=== PATIENT | male | born 1975 | race Two or more races ===

== ENCOUNTER 2017-09-14 12:23 | Inpatient (IN) | payer OTHER ==
[2017-09-14 13:20] VITALS: BMI 23.6
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
[2017-09-14] MEDS ORDERED: NICOTINE POLACRILEX 2 MG GUM BC PRN (16:17)
[2017-09-14] MEDS ORDERED: MENTHOL/PHENOL 1 EACH UD MM PRN (16:17)
[2017-09-14] MEDS ORDERED: LOPERAMIDE HCL 2 MG CAPSULE PO PRN (16:17)
[2017-09-14] MEDS ORDERED: guaiFENesin/D-METHORPHAN HB 10 ML UNIT-DOSE CUPS PO PRN (16:17)
[2017-09-14] MEDS ORDERED: MAGNESIUM HYDROX 2400MG/30ML ORAL SUSPENSION 30 ML CUP PO PRN (16:17)
[2017-09-14] MEDS ORDERED: MAG HYDROX/AL HYDROX/SIMETH 30 ML UNIT-DOSE CUP PO PRN (16:17)
[2017-09-14] MEDS ORDERED: MAGNESIUM CITRATE 300 ML BOTTLE PO PRN (16:17)
[2017-09-14] MEDS ORDERED: IBUPROFEN 400 MG TABLET (FP) PO PRN (16:17)
[2017-09-14] MEDS ORDERED: P-EPHED 60MG/TRIPROLIDI 2.5MG TABLET PO PRN (16:17)
[2017-09-14] MEDS ORDERED: hydrOXYzine PAMOATE 50 MG CAPSULE (FP) PO PRN (16:17)
[2017-09-14] MEDS ORDERED: chlordiazePOXIDE HCL 25 MG CAPSULE PO PRN (18:37)
[2017-09-14] MEDS: NICOTINE 14 MG/24 HOURS TOPICAL PATCH TD SCH (18:58)
[2017-09-14] MEDS ORDERED: chlordiazePOXIDE HCL 25 MG CAPSULE PO ONE (19:15)
[2017-09-14] MEDS: ACETAMINOPHEN 325 MG TABLET (FP) PO PRN (22:24)
[2017-09-14] MEDS: chlordiazePOXIDE HCL 25 MG CAPSULE PO SCH (22:24)
[2017-09-14] MEDS: THIAMINE HCL 100 MG TABLET (FP) PO SCH (22:24)
[2017-09-14 23:11] LABS: URINE APPEARANCE TURBID; URINE BILIRUBIN NEGATIVE (NEGATIVE); URINE BLOOD NEGATIVE (NEGATIVE); URINE COLOR YELLOW; URINE GLUCOSE (UA) NEGATIVE (NEGATIVE); URINE KETONE NEGATIVE (NEGATIVE); URINE LEUK ESTERASE NEGATIVE (NEGATIVE); URINE NITRITE NEGATIVE (NEGATIVE); URINE PROTEIN NEGATIVE (NEGATIVE)
[2017-09-15] MEDS: chlordiazePOXIDE HCL 25 MG CAPSULE PO SCH ×4 (05:10→22:08)
--- NOTE | 2017-09-15 09:25 | PN ---
S CIWA - CIWA Score Nausea/Vomitin Muscle Tremors: 3 Anxiety: 3 Agitation: 3 Paroxysmal Sweats: 1-Minimal Palms Moist Orientation: 0-Oriented Tacttile Disturbances: 1-Very Mild Itch/Numbness Auditory Disturbances: 1-Very Mild Visual Disturbances: 0-None Headache: 2-Mild CIWA-Ar Total Score: 17 BHS Progress Note (SOAP) Subjective: ALERT,IRRITABLE,ANXIOUS,INTERRUPTED SLEEP,TREMOR Objective: 09/15/17 09:23 Vital Signs Temperature 97.5 F L 09/15/17 06:14 Pulse Rate 80 09/15/17 06:14 Respiratory Rate 18 09/15/17 06:14 Blood Pressure 151/93 09/15/17 06:14 O2 Sat by Pulse Oximetry (%) EKG NSR,LVH NO CHEST PAIN,NO SOB,NO DIZZINESS 09/15/17 09:24 Laboratory Last Values Urine Color Yellow 09/14/17 22:50 Urine Appearance Turbid 09/14/17 22:50 Urine pH 5.0 (5.0-8.0) 09/14/17 22:50 Ur Specific [place] 1.026 (1.001-1.035) 09/14/17 22:50 Urine Protein Negative (NEGATIVE) 09/14/17 22:50 Urine Glucose (UA) Negative (NEGATIVE) 09/14/17 22:50 Urine Ketones Negative (NEGATIVE) 09/14/17 22:50 Urine Blood Negative (NEGATIVE) 09/14/17 22:50 Urine Nitrite Negative (NEGATIVE) 09/14/17 22:50 Urine Bilirubin Negative (NEGATIVE) 09/14/17 22:50 Urine Urobilinogen 2.0 mg/dL (0.2-1.0) 09/14/17 22:50 Ur Leukocyte Esterase Negative (NEGATIVE) 09/14/17 22:50 LABS PENDING Assessment: 09/15/17 09:23 WITHDRAWAL SYMPTOM Plan: CONTINUE DETOX
[2017-09-15 10:03] LABS: HEMATOCRIT 40.9 % (35.4-49); HEMOGLOBIN 13.4 GM/dL (11.7-16.9); MCH 30.3 pg (25.7-33.7); MCHC 32.7 g/dl (32.0-35.9); MEAN CELL VOLUME 92.8 fl (80-96); MEAN PLT VOLUME 8.4 fl (7.5-11.1); PLATELET COUNT 185 K/MM3 (134-434); RDW 13.4 % (11.9-15.9); WHITE BLOOD COUNT 5.4 K/mm3 (4.0-10.0)
[2017-09-15] MEDS: PRENATAL VITAMINS W/ FOLIC ACID TABLET (FP) PO SCH (10:18)
[2017-09-15] MEDS: NICOTINE 14 MG/24 HOURS TOPICAL PATCH TD SCH (10:20)
[2017-09-15 10:35] LABS: CHLORIDE 101 mmol/L (98-107); POTASSIUM 3.4 mmol/L (3.5-5.1); SODIUM 139 mmol/L (136-145)
[2017-09-15 10:58] LABS: ALBUMIN 3.5 g/dl (3.4-5.0); ALK PHOS 61 U/L (45-117); ANION GAP 7 (8-16); BILIRUBIN,TOTAL 0.7 mg/dL (0.2-1.0); BLOOD UREA NITROGEN 10 mg/dL (7-18); CALCIUM 9.2 mg/dL (8.5-10.1); CO2 31 mmol/L (21-32); CREATININE 0.6 mg/dL (0.7-1.3); GLUCOSE,RANDOM 85 mg/dL (74-106); SGOT/AST 24 U/L (15-37); SGPT/ALT 29 U/L (12-78); TOT PROT 6.7 g/dl (6.4-8.2)
--- NOTE | 2017-09-15 13:59 | EKG ---
Test Reason : Blood Pressure : / mmHG Vent. Rate : 081 BPM Atrial Rate : 081 BPM P-R Int : 164 ms QRS Dur : 096 ms QT Int : 376 ms P-R-T Axes : 072 040 046 degrees QTc Int : 436 ms NORMAL SINUS RHYTHM MINIMAL VOLTAGE CRITERIA FOR LVH, MAY BE NORMAL VARIANT BORDERLINE ECG NO PREVIOUS ECGS AVAILABLE Confirmed by MD Motley Edward ([id number]) on 09/15/2017 1:59:02 PM Referred By: Confirmed By:Nikita Motley MD
[2017-09-15] MEDS: THIAMINE HCL 100 MG TABLET (FP) PO SCH (22:08)
[2017-09-16] MEDS: chlordiazePOXIDE HCL 25 MG CAPSULE PO SCH ×3 (05:56→17:07)
--- NOTE | 2017-09-16 09:32 | PN ---
S CIWA - CIWA Score Nausea/Vomitin Muscle Tremors: 3 Anxiety: 3 Agitation: 2 Paroxysmal Sweats: 1-Minimal Palms Moist Orientation: 0-Oriented Tacttile Disturbances: 1-Very Mild Itch/Numbness Auditory Disturbances: 1-Very Mild Visual Disturbances: 1-Very Mild Sensitivity Headache: 2-Mild CIWA-Ar Total Score: 17 BHS Progress Note (SOAP) Subjective: ALERT,IRRITABLE,ANXIOUS,INTERRUPTED SLEEP,PAIN IN THE BODY Objective: 09/16/17 09:29 Vital Signs Temperature 97.7 F 09/16/17 06:46 Pulse Rate 79 09/16/17 06:46 Respiratory Rate 18 09/16/17 06:46 Blood Pressure 141/106 09/16/17 06:46 O2 Sat by Pulse Oximetry (%) Laboratory Last Values WBC 5.4 K/mm3 (4.0-10.0) 09/15/17 07:30 RBC 4.40 M/mm3 (4.00-5.60) 09/15/17 07:30 Hgb 13.4 GM/dL (11.7-16.9) 09/15/17 07:30 Hct 40.9 % (35.4-49) 09/15/17 07:30 MCV 92.8 fl (80-96) 09/15/17 07:30 MCH 30.3 pg (25.7-33.7) 09/15/17 07:30 MCHC 32.7 g/dl (32.0-35.9) 09/15/17 07:30 RDW 13.4 % (11.9-15.9) 09/15/17 07:30 Plt Count 185 K/MM3 (134-434) D 09/15/17 07:30 MPV 8.4 fl (7.5-11.1) 09/15/17 07:30 Sodium 139 mmol/L (136-145) 09/15/17 07:30 Potassium 3.4 mmol/L (3.5-5.1) L 09/15/17 07:30 Chloride 101 mmol/L (98-107) 09/15/17 07:30 Carbon Dioxide 31 mmol/L (21-32) 09/15/17 07:30 Anion Gap 7 (8-16) L 09/15/17 07:30 BUN 10 mg/dL (7-18) D 09/15/17 07:30 Creatinine 0.6 mg/dL (0.7-1.3) L 09/15/17 07:30 Creat Clearance w eGFR > 60 (>60) 09/15/17 07:30 Random Glucose 85 mg/dL (74-106) 09/15/17 07:30 Calcium 9.2 mg/dL (8.5-10.1) 09/15/17 07:30 Total Bilirubin 0.7 mg/dL (0.2-1.0) 09/15/17 07:30 AST 24 U/L (15-37) D 09/15/17 07:30 ALT 29 U/L (12-78) D 09/15/17 07:30 Alkaline Phosphatase 61 U/L (45-117) 09/15/17 07:30 Total Protein 6.7 g/dl (6.4-8.2) 09/15/17 07:30 Albumin 3.5 g/dl (3.4-5.0) 09/15/17 07:30 Urine Color Yellow 09/14/17 22:50 Urine Appearance Turbid 09/14/17 22:50 Urine pH 5.0 (5.0-8.0) 09/14/17 22:50 Ur Specific [place] 1.026 (1.001-1.035) 09/14/17 22:50 Urine Protein Negative (NEGATIVE) 09/14/17 22:50 Urine Glucose (UA) Negative (NEGATIVE) 09/14/17 22:50 Urine Ketones Negative (NEGATIVE) 09/14/17 22:50 Urine Blood Negative (NEGATIVE) 09/14/17 22:50 Urine Nitrite Negative (NEGATIVE) 09/14/17 22:50 Urine Bilirubin Negative (NEGATIVE) 09/14/17 22:50 Urine Urobilinogen 2.0 mg/dL (0.2-1.0) 09/14/17 22:50 Ur Leukocyte Esterase Negative (NEGATIVE) 09/14/17 22:50 HIV 1&2 Antibody Screen Negative 09/15/17 07:30 HIV P24 Antigen Negative 09/15/17 07:30 Assessment: 09/16/17 09:30 WITHDRAWAL SYMPTOM Plan: CONTINUE DETOX,K DUR 20 MEQ PO DAILY FOR HYPOKALEMIA K IS 3.4 FOR 3 DAYS
[2017-09-16 09:50] LABS: RPR REACTIVE 1:1 (NONREACTIVE)
[2017-09-16 09:51] LABS: TREPONEMA ANTIBODY PREVIOUSLY REACTIVE (NONREACTIVE)
[2017-09-16] MEDS ORDERED: POTASSIUM CHLORIDE TABS 10 MEQ TABLET.ER (FP) PO SCH (10:00)
[2017-09-16] MEDS: NICOTINE 14 MG/24 HOURS TOPICAL PATCH TD SCH (10:14)
[2017-09-16] MEDS: POTASSIUM CHLORIDE TABS 20 MEQ TABLET.ER (FP) PO SCH (10:14)
[2017-09-16] MEDS: PRENATAL VITAMINS W/ FOLIC ACID TABLET (FP) PO SCH (10:14)
[2017-09-16] MEDS: THIAMINE HCL 100 MG TABLET (FP) PO SCH (22:16)
[2017-09-16] MEDS: chlordiazePOXIDE 5 MG CAPSULE PO SCH (22:16)
[2017-09-17] MEDS: chlordiazePOXIDE 5 MG CAPSULE PO SCH ×3 (05:24→17:44)
--- NOTE | 2017-09-17 09:35 | PN ---
S Progress Note (SOAP) Subjective: ALERT,IRRITABLE,INTERRUPTED SLEEP Objective: 09/17/17 09:34 Vital Signs Temperature 97.2 F L 09/17/17 06:00 Pulse Rate 66 09/17/17 06:00 Respiratory Rate 18 09/17/17 06:00 Blood Pressure 129/96 09/17/17 06:00 O2 Sat by Pulse Oximetry (%) Assessment: 09/17/17 09:35 WITHDRAWAL SYMPTOM Plan: CONTINUE DETOX,DISCHARGE IN AM
[2017-09-17] MEDS: PRENATAL VITAMINS W/ FOLIC ACID TABLET (FP) PO SCH (10:20)
[2017-09-17] MEDS: NICOTINE 14 MG/24 HOURS TOPICAL PATCH TD SCH (10:20)
[2017-09-17] MEDS: POTASSIUM CHLORIDE TABS 20 MEQ TABLET.ER (FP) PO SCH (10:20)
[2017-09-17] MEDS: chlordiazePOXIDE HCL 10 MG CAPSULE PO SCH (22:11)
[2017-09-17] MEDS: THIAMINE HCL 100 MG TABLET (FP) PO SCH (22:11)
[2017-09-17] MEDS: ACETAMINOPHEN 325 MG TABLET (FP) PO PRN (22:13)
[2017-09-18] MEDS: chlordiazePOXIDE HCL 10 MG CAPSULE PO SCH (05:34)
[2017-09-18 06:13] VITALS: TEMP 97.7
--- NOTE | 2017-09-18 08:47 | DS ---
[facility] Detox Discharge Summary Admission Date: 09/14/17 Discharge Date: 09/18/17 - History Present History: Alcohol Dependence, Cannabis Dependence Additional Comments: follow up with after care program as arrangement Pertinent Past History: nicotine dependence - Physical Exam Results Vital Signs: Vital Signs Temperature 97.7 F 09/18/17 06:00 Pulse Rate 72 09/18/17 06:00 Respiratory Rate 18 09/18/17 06:00 Blood Pressure 114/76 09/18/17 06:00 O2 Sat by Pulse Oximetry (%) Pertinent Admission Physical Exam Findings: withdrawal symptom and finding - Treatment Hospital Course: Detox Protocol Followed, Detoxed Safely, Responded well, Discharged Condition Good Patient has Accepted a Rehab Referral to: declined - Medication Discharge Medications: Ambulatory Orders levoFLOXacin [Levaquin -] 500 mg PO DAILY@0600 #7 tablet 02/18/16 - Diagnosis (1) Alcohol dependence with uncomplicated withdrawal Current Visit: Yes Status: Acute (2) Cannabis dependence Current Visit: Yes Status: Acute (3) Nicotine dependence Current Visit: Yes Status: Acute Qualifiers: Nicotine product type: cigarettes Substance use status: in withdrawal Qualified Code(s): F17.213 - Nicotine dependence, cigarettes, with withdrawal (4) Hypokalemia Current Visit: Yes Status: Acute - AMA Did Patient Leave Against Medical Advice: No
[2017-09-18 10:01] VITALS: BP 127/81; PULSE 101
== END 2017-09-18 09:33 | disposition home or self-care (01) | DRG 775 ==
LOC: YASAS 12:23 → Y6N 17:27
PROVIDERS: ADMIT Internal Medicine; ATTEND Internal Medicine
PROC: HZ2ZZZZ Detoxification Services for Substance Abuse Treatment (ICD-10-PCS; principal; 2017-09-14)
DX: F10.230 Alcohol dependence with withdrawal, uncomplicated (principal); F12.20 Cannabis dependence, uncomplicated; F17.213 Nicotine dependence, cigarettes, with withdrawal; E87.6 Hypokalemia; I10 Essential (primary) hypertension; Z91.14 Patient's other noncompliance with medication regimen
CPT/HCPCS: 36415; 80053; 81003; 85027; 86593; 86780; 87389; 93005; 93010

== ENCOUNTER 2020-11-13 13:22 | Inpatient (IN) | payer OTHER ==
[2020-11-13] MEDS ORDERED: MAG HYDROX/AL HYDROX/SIMETH 30 ML UNIT-DOSE CUP PO PRN (18:52)
[2020-11-13] MEDS ORDERED: MAGNESIUM CITRATE 300 ML BOTTLE PO PRN (18:52)
[2020-11-13] MEDS ORDERED: MENTHOL/PHENOL 1 EACH UD MM PRN (18:52)
[2020-11-13] MEDS ORDERED: IBUPROFEN 400 MG TABLET (FP) PO PRN (18:52)
[2020-11-13] MEDS ORDERED: MAGNESIUM HYDROX 2400MG/30ML ORAL SUSPENSION 30 ML CUP PO PRN (18:52)
[2020-11-13] MEDS ORDERED: ONDANSETRON *ODT* 4 MG TABLET SL PRN (18:52)
[2020-11-13] MEDS ORDERED: NICOTINE POLACRILEX 2 MG GUM BUC PRN (18:52)
[2020-11-13] MEDS ORDERED: BISMUTH SUBSALICYLATE 524 MG/30 ML UD PO PRN (18:52)
[2020-11-13] MEDS ORDERED: ACETAMINOPHEN 325 MG TABLET (FP) PO PRN ×2 (18:52)
[2020-11-13] MEDS ORDERED: diazePAM 5 MG TABLET PO PRN (19:00)
[2020-11-13] MEDS: NICOTINE 7 MG/24 HOURS TOPICAL PATCH TD SCH (20:54)
[2020-11-13] MEDS: PRENATAL VITAMINS W/ FOLIC ACID TABLET (FP) PO SCH (20:55)
[2020-11-13] MEDS: METHOCARBAMOL 500 MG TABLET PO PRN (22:19)
[2020-11-13] MEDS: hydrOXYzine PAMOATE 25 MG CAPSULE (FP) PO SCH (22:19)
[2020-11-13] MEDS: MELATONIN 5 MG TABLETS PO SCH (22:19)
[2020-11-13] MEDS: diazePAM 5 MG TABLET PO SCH (22:20)
[2020-11-13] MEDS: THIAMINE HCL 100 MG TABLET (FP) PO SCH (22:21)
[2020-11-14] MEDS: diazePAM 5 MG TABLET PO SCH (05:28)
[2020-11-14] MEDS: hydrOXYzine PAMOATE 25 MG CAPSULE (FP) PO SCH (05:29)
[2020-11-14] MEDS ORDERED: hydrOXYzine PAMOATE 25 MG CAPSULE (FP) PO PRN (09:38)
[2020-11-14] MEDS ORDERED: chlordiazePOXIDE HCL 25 MG CAPSULE PO PRN (09:40)
[2020-11-14] MEDS: chlordiazePOXIDE HCL 25 MG CAPSULE PO SCH ×3 (10:11→22:06)
[2020-11-14] MEDS: PRENATAL VITAMINS W/ FOLIC ACID TABLET (FP) PO SCH (10:11)
[2020-11-14] MEDS: NICOTINE 7 MG/24 HOURS TOPICAL PATCH TD SCH (10:12)
[2020-11-14 10:55] LABS: HEMATOCRIT 40.1 % (35.4-49); HEMOGLOBIN 13.6 GM/dL (11.7-16.9); MCH 30.4 pg (25.7-33.7); MCHC 33.9 g/dl (32.0-35.9); MEAN CELL VOLUME 89.8 fl (80-96); MEAN PLT VOLUME 8.7 fl (7.5-11.1); PLATELET COUNT 156 K/MM3 (134-434); RBC 4.46 M/mm3 (4.00-5.60); RDW 14.7 % (11.9-15.9); WHITE BLOOD COUNT 5.6 K/mm3 (4.0-10.0)
[2020-11-14 11:01] LABS: CHLORIDE 95 mmol/L (98-107); SODIUM 137 mmol/L (136-145)
[2020-11-14 11:05] LABS: ALBUMIN 3.7 g/dl (3.4-5.0); BLOOD UREA NITROGEN 9.9 mg/dL (7-18); CALCIUM 9.6 mg/dL (8.5-10.1); CO2 37 mmol/L (21-32); GLUCOSE,RANDOM 79 mg/dL (74-106)
[2020-11-14 11:08] LABS: CREATININE 0.6 mg/dL (0.55-1.3); SGOT/AST 95 U/L (15-37); SGPT/ALT 107 U/L (13-61)
[2020-11-14 11:10] LABS: TOT PROT 6.8 g/dl (6.4-8.2)
[2020-11-14 11:11] LABS: ALK PHOS 71 U/L (45-117)
[2020-11-14 11:12] LABS: ANION GAP 5 MMOL/L (8-16)
[2020-11-14] MEDS: POTASSIUM CHLORIDE ORAL LIQUID 20 MEQ/15 ML PO SCH ×3 (12:01→20:46)
[2020-11-14] MEDS: METHOCARBAMOL 500 MG TABLET PO PRN (17:44)
[2020-11-14] MEDS: MELATONIN 5 MG TABLETS PO SCH (22:06)
[2020-11-14] MEDS: THIAMINE HCL 100 MG TABLET (FP) PO SCH (22:06)
[2020-11-15] MEDS: chlordiazePOXIDE HCL 25 MG CAPSULE PO SCH ×4 (05:28→22:15)
[2020-11-15] MEDS ORDERED: diazePAM 5 MG TABLET PO SCH (06:00)
[2020-11-15] MEDS: PRENATAL VITAMINS W/ FOLIC ACID TABLET (FP) PO SCH (10:22)
[2020-11-15] MEDS: NICOTINE 7 MG/24 HOURS TOPICAL PATCH TD SCH (10:22)
[2020-11-15] MEDS: THIAMINE HCL 100 MG TABLET (FP) PO SCH (22:14)
[2020-11-15] MEDS: MELATONIN 5 MG TABLETS PO SCH (22:14)
[2020-11-15] MEDS: METHOCARBAMOL 500 MG TABLET PO PRN (22:15)
[2020-11-16] MEDS ORDERED: diazePAM 5 MG TABLET PO SCH (06:00)
[2020-11-16] MEDS: chlordiazePOXIDE HCL 25 MG CAPSULE PO SCH ×4 (06:46→22:29)
[2020-11-16] MEDS: PRENATAL VITAMINS W/ FOLIC ACID TABLET (FP) PO SCH (10:06)
[2020-11-16] MEDS: NICOTINE 7 MG/24 HOURS TOPICAL PATCH TD SCH (10:07)
[2020-11-16] MEDS: MELATONIN 5 MG TABLETS PO SCH (22:29)
[2020-11-16] MEDS: THIAMINE HCL 100 MG TABLET (FP) PO SCH (22:29)
[2020-11-16] MEDS: METHOCARBAMOL 500 MG TABLET PO PRN (22:31)
[2020-11-17] MEDS ORDERED: chlordiazePOXIDE HCL 10 MG CAPSULE PO PRN
[2020-11-17] MEDS ORDERED: chlordiazePOXIDE HCL 10 MG CAPSULE PO SCH (05:00)
[2020-11-17] MEDS ORDERED: diazePAM 5 MG TABLET PO ONE (06:00)
[2020-11-17 06:49] VITALS: BP 123/87; PULSE 76; TEMP 97.3
[2020-11-17] MEDS: PRENATAL VITAMINS W/ FOLIC ACID TABLET (FP) PO SCH (10:02)
[2020-11-17] MEDS: NICOTINE 7 MG/24 HOURS TOPICAL PATCH TD SCH (10:03)
[2020-11-17 14:07] LABS: SARS-CoV-2 NAA Not Detected (Not Detected)
[2020-11-18] MEDS ORDERED: chlordiazePOXIDE HCL 10 MG CAPSULE PO SCH (05:00)
[2020-11-19] MEDS ORDERED: chlordiazePOXIDE HCL 10 MG CAPSULE PO ONE (05:00)
== END 2020-11-17 11:52 | disposition home or self-care (01) | DRG 775 ==
LOC: YASAS 13:22 → Y3N 19:32
PROVIDERS: ADMIT Allergy & Immunology; ATTEND Allergy & Immunology
PROC: HZ2ZZZZ Detoxification Services for Substance Abuse Treatment (ICD-10-PCS; principal; 2020-11-13)
DX: F10.230 Alcohol dependence with withdrawal, uncomplicated (principal); F12.20 Cannabis dependence, uncomplicated; F17.213 Nicotine dependence, cigarettes, with withdrawal; I10 Essential (primary) hypertension
CPT/HCPCS: 36415; 80053; 84132; 85027; 86593; 86780; C9803; U0003; U0005

== ENCOUNTER 2024-01-12 14:05 | Inpatient (IN) | payer OTHER ==
[2024-01-12 15:16] VITALS: BMI 23.2
[2024-01-12] MEDS ORDERED: BENZOCAINE/MENTHOL (CHLORASEPTIC ) LOZENGE MM PRN (16:30)
[2024-01-12] MEDS ORDERED: guaiFENesin 600 MG TABLET.ER (FP) PO PRN (16:30)
[2024-01-12] MEDS ORDERED: ONDANSETRON *ODT* 4 MG TABLET SL PRN (16:30)
[2024-01-12] MEDS ORDERED: BISMUTH SUBSALICYLATE 524 MG/30 ML PO PRN (16:30)
[2024-01-12] MEDS ORDERED: BENZONATATE 200 MG CAPSULE PO PRN (16:30)
[2024-01-12] MEDS ORDERED: P-EPHED 60MG/TRIPROLIDI 2.5MG TABLET PO PRN (16:30)
[2024-01-12] MEDS ORDERED: POLYETHYLENE GLYCOL (HEALTHYLAX) 3350 17 GM PACKET PO PRN (16:30)
[2024-01-12] MEDS ORDERED: ACETAMINOPHEN 325 MG TABLET (FP) PO PRN (16:30)
[2024-01-12] MEDS ORDERED: DICYCLOMINE HCL 10 MG CAPSULE PO PRN (16:30)
[2024-01-12] MEDS ORDERED: LOPERAMIDE HCL 2 MG CAPSULE PO PRN (16:30)
[2024-01-12] MEDS ORDERED: MAG HYDROX/AL HYDROX/SIMETH 30 ML UNIT-DOSE CUP PO PRN (16:30)
[2024-01-12] MEDS ORDERED: IBUPROFEN 600 MG TABLET (FP) PO PRN (16:30)
[2024-01-12] MEDS ORDERED: MAGNESIUM HYDROX 2400MG/30ML ORAL SUSPENSION 30 ML CUP PO PRN (16:30)
[2024-01-12] MEDS ORDERED: IBUPROFEN 400 MG TABLET (FP) PO PRN (16:30)
[2024-01-12] MEDS: THIAMINE 100 MG TABLET PO SCH (22:18)
[2024-01-12] MEDS: MELATONIN 5 MG TABLETS PO SCH (22:18)
[2024-01-13] MEDS: hydrOXYzine PAMOATE 25 MG CAPSULE (FP) PO PRN (05:28)
[2024-01-13] MEDS ORDERED: chlordiazePOXIDE HCL 25 MG CAPSULE PO PRN (08:32)
[2024-01-13] MEDS: chlordiazePOXIDE HCL 25 MG CAPSULE PO ONE (08:35)
[2024-01-13] MEDS: PRENATAL VITAMINS W/ FOLIC ACID TABLET (FP) PO SCH (10:11)
[2024-01-13] MEDS: chlordiazePOXIDE HCL 25 MG CAPSULE PO SCH (10:13)
[2024-01-13 11:42] LABS: HEMATOCRIT 40.1 % (35.4-49); HEMOGLOBIN 13.5 GM/dL (11.7-16.9); MCHC 33.6 g/dl (32.0-35.9); MEAN CELL VOLUME 92.2 fl (80-96); MEAN PLT VOLUME 8.7 fl (7.5-11.1); PLATELET COUNT 170 10^3/uL (134-434); RBC 4.35 M/mm3 (4.00-5.60); RDW 13.6 % (11.9-15.9); WHITE BLOOD COUNT 5.6 K/mm3 (4.0-10.0)
[2024-01-13 11:50] LABS: POTASSIUM 3.8 mmol/L (3.5-5.1)
[2024-01-13 12:07] LABS: BLOOD UREA NITROGEN 8.8 mg/dL (7-18); CALCIUM 9.5 mg/dL (8.5-10.1)
[2024-01-13 12:08] LABS: ALBUMIN 3.8 g/dl (3.4-5.0)
[2024-01-13 12:10] LABS: BILIRUBIN,TOTAL 0.6 mg/dL (0.2-1); CREATININE 0.6 mg/dL (0.55-1.3)
[2024-01-14] MEDS ORDERED: cloNIDine HCL 0.1 MG TABLET PO PRN (13:19)
[2024-01-14] MEDS: amLODIPine BESYLATE 5 MG TABLET (FP) PO SCH (14:08)
[2024-01-14] MEDS: LORazepam 2 MG TABLET PO SCH (17:13)
[2024-01-15] MEDS ORDERED: chlordiazePOXIDE HCL 25 MG CAPSULE PO SCH (05:00)
[2024-01-16] MEDS ORDERED: chlordiazePOXIDE HCL 10 MG CAPSULE PO PRN
[2024-01-16] MEDS ORDERED: chlordiazePOXIDE HCL 10 MG CAPSULE PO SCH (05:00)
[2024-01-16] MEDS: LORazepam 1 MG TABLET PO SCH (05:30)
[2024-01-16] MEDS: METHOCARBAMOL 500 MG TABLET PO PRN (22:58)
[2024-01-16] MEDS: LORazepam 1 MG TABLET PO PRN (23:00)
[2024-01-17] MEDS ORDERED: LORazepam 0.5 MG TABLET PO PRN
[2024-01-17] MEDS ORDERED: chlordiazePOXIDE HCL 10 MG CAPSULE PO SCH (05:00)
[2024-01-17] MEDS ORDERED: LORazepam 0.5 MG TABLET PO SCH (05:00)
[2024-01-17] MEDS: LORazepam 0.5 MG TABLET PO ONE (05:32)
[2024-01-17 06:02] VITALS: RESP 16
[2024-01-17 09:12] VITALS: BP 116/86; PULSE 87; TEMP 98
[2024-01-18] MEDS ORDERED: LORazepam 0.5 MG TABLET PO ONE (05:00)
[2024-01-18] MEDS ORDERED: chlordiazePOXIDE HCL 10 MG CAPSULE PO ONE (05:00)
== END 2024-01-17 09:43 | disposition home or self-care (01) | DRG 775 ==
LOC: YASAS 14:05 → Y6N 17:44 → UNDOADMIN 17:44 → Y6N 01-13 09:24
PROVIDERS: ADMIT Allergy & Immunology; ATTEND Surgery
PROC: HZ2ZZZZ Detoxification Services for Substance Abuse Treatment (ICD-10-PCS; principal; 2024-01-13)
DX: F10.230 Alcohol dependence with withdrawal, uncomplicated (principal); F12.10 Cannabis abuse, uncomplicated; I10 Essential (primary) hypertension; R74.01 Elevation of levels of liver transaminase levels; Z86.19 Personal history of other infectious and parasitic diseases
CPT/HCPCS: 36415; 80053; 80305; 80307; 84450; 85027; 86593; 86780; 86803

== ENCOUNTER 2024-08-13 12:19 | Inpatient (IN) | payer OTHER ==
[2024-08-13 12:56] VITALS: BMI 22.5
[2024-08-13] MEDS ORDERED: POLYETHYLENE GLYCOL (HEALTHYLAX) 3350 17 GM PACKET PO PRN (13:12)
[2024-08-13] MEDS ORDERED: BISMUTH SUBSALICYLATE 524 MG/30 ML PO PRN (13:12)
[2024-08-13] MEDS ORDERED: MAGNESIUM HYDROX 2400MG/30ML ORAL SUSPENSION 30 ML CUP PO PRN (13:12)
[2024-08-13] MEDS ORDERED: ONDANSETRON *ODT* 4 MG TABLET SL PRN (13:12)
[2024-08-13] MEDS ORDERED: BENZONATATE 200 MG CAPSULE PO PRN (13:12)
[2024-08-13] MEDS ORDERED: LOPERAMIDE HCL 2 MG CAPSULE PO PRN (13:12)
[2024-08-13] MEDS ORDERED: DICYCLOMINE HCL 10 MG CAPSULE PO PRN (13:12)
[2024-08-13] MEDS ORDERED: NICOTINE POLACRILEX 2 MG GUM BUC PRN (13:12)
[2024-08-13] MEDS ORDERED: BENZOCAINE/MENTHOL (CHLORASEPTIC ) LOZENGE MM PRN (13:12)
[2024-08-13] MEDS ORDERED: guaiFENesin 600 MG TABLET.ER (FP) PO PRN (13:12)
[2024-08-13] MEDS ORDERED: MAG HYDROX/AL HYDROX/SIMETH 30 ML UNIT-DOSE CUP PO PRN (13:12)
[2024-08-13] MEDS ORDERED: chlordiazePOXIDE HCL 25 MG CAPSULE PO PRN (13:28)
[2024-08-13] MEDS ORDERED: chlordiazePOXIDE HCL 25 MG CAPSULE ONE (13:36)
[2024-08-13] MEDS: chlordiazePOXIDE HCL 25 MG CAPSULE PO ONE (13:37)
[2024-08-13] MEDS: chlordiazePOXIDE HCL 25 MG CAPSULE PO SCH (17:29)
[2024-08-13] MEDS: THIAMINE 100 MG TABLET PO SCH (22:06)
[2024-08-13] MEDS: MELATONIN 5 MG TABLETS PO SCH (22:06)
[2024-08-13] MEDS: METHOCARBAMOL 500 MG TABLET PO PRN (22:07)
[2024-08-13] MEDS: hydrOXYzine PAMOATE 25 MG CAPSULE (FP) PO PRN (22:07)
[2024-08-14 08:35] LABS: CHLORIDE 85 mmol/L (98-107); SODIUM 129 mmol/L (136-145)
[2024-08-14 08:37] LABS: HEMATOCRIT 43.5 % (35.4-49); MCH 30.5 pg (25.7-33.7); MCHC 34.6 g/dl (32.0-35.9); MEAN CELL VOLUME 88.3 fl (80-96); MEAN PLT VOLUME 8.8 fl (7.5-11.1); PLATELET COUNT 148 10^3/uL (134-434); RBC 4.92 M/mm3 (4.00-5.60); RDW 13.6 % (11.9-15.9); WHITE BLOOD COUNT 5.4 K/mm3 (4.0-10.0)
[2024-08-14 08:52] LABS: ALBUMIN 4.3 g/dl (3.4-5.0); BLOOD UREA NITROGEN 12.6 mg/dL (7-18); CALCIUM 10.3 mg/dL (8.5-10.1); CO2 30 mmol/L (21-32); GLUCOSE,RANDOM 201 mg/dL (74-106)
[2024-08-14 08:55] LABS: BILIRUBIN,TOTAL 3.1 mg/dL (0.2-1); SGOT/AST 360 U/L (15-37); SGPT/ALT 326 U/L (13-61); TOT PROT 7.7 g/dl (6.4-8.2)
[2024-08-14 08:57] LABS: ALK PHOS 74 U/L (45-117)
[2024-08-14 09:11] LABS: ANION GAP 14 mmol/L (4-13); POTASSIUM 2.4 mmol/L (3.5-5.1)
[2024-08-14] MEDS: PRENATAL VITAMINS W/ FOLIC ACID TABLET (FP) PO SCH (09:40)
[2024-08-14] MEDS: POTASSIUM CHLORIDE ORAL LIQUID 20 MEQ/15 ML PO ONE ×2 (09:40→10:41)
[2024-08-15] MEDS: chlordiazePOXIDE HCL 25 MG CAPSULE PO SCH (05:45)
[2024-08-15 11:41] LABS: CHLORIDE 91 mmol/L (98-107); SODIUM 135 mmol/L (136-145)
[2024-08-15 11:42] LABS: CALCIUM 10.3 mg/dL (8.5-10.1)
[2024-08-15 11:43] LABS: ANION GAP 9 mmol/L (4-13); BLOOD UREA NITROGEN 18.7 mg/dL (7-18); CO2 34 mmol/L (21-32); GLUCOSE,RANDOM 127 mg/dL (74-106); MAGNESIUM 1.6 mg/dL (1.8-2.4); POTASSIUM 2.9 mmol/L (3.5-5.1)
[2024-08-15 11:47] LABS: CREATININE 0.8 mg/dL (0.55-1.3)
[2024-08-15] MEDS: POTASSIUM CHLORIDE ORAL LIQUID 20 MEQ/15 ML PO ONE ×2 (12:09→17:09)
[2024-08-16] MEDS ORDERED: chlordiazePOXIDE HCL 10 MG CAPSULE PO PRN
[2024-08-16] MEDS: chlordiazePOXIDE HCL 10 MG CAPSULE PO SCH (05:50)
[2024-08-16 11:12] LABS: POTASSIUM 3.7 mmol/L (3.5-5.1)
[2024-08-16 11:15] LABS: ALBUMIN 3.8 g/dl (3.4-5.0); BLOOD UREA NITROGEN 18.3 mg/dL (7-18); CALCIUM 9.7 mg/dL (8.5-10.1)
[2024-08-16 11:21] LABS: CREATININE 0.7 mg/dL (0.55-1.3)
[2024-08-16 11:22] LABS: TOT PROT 6.6 g/dl (6.4-8.2)
[2024-08-16 11:24] LABS: BILIRUBIN,TOTAL 0.5 mg/dL (0.2-1)
[2024-08-17] MEDS: chlordiazePOXIDE HCL 10 MG CAPSULE PO SCH (05:58)
[2024-08-18] MEDS: chlordiazePOXIDE HCL 10 MG CAPSULE PO ONE (05:44)
[2024-08-18 06:30] VITALS: BP 104/71; PULSE 89; RESP 17; TEMP 98
[2024-08-18] MEDS: NALOXONE (NYS OPIOID OVERDOSE PROGRAM) 4 MG/0.1 ML SPRAY NS SCH (08:55)
[2024-08-18] MEDS: amLODIPine BESYLATE 5 MG TABLET (FP) PO SCH (09:12)
== END 2024-08-18 09:22 | disposition home or self-care (01) | DRG 775 ==
LOC: YASAS 12:19 → Y3N 13:20
PROVIDERS: ADMIT Allergy & Immunology; ATTEND Allergy & Immunology
PROC: HZ2ZZZZ Detoxification Services for Substance Abuse Treatment (ICD-10-PCS; principal; 2024-08-13)
DX: F10.230 Alcohol dependence with withdrawal, uncomplicated (principal); F12.20 Cannabis dependence, uncomplicated; F17.210 Nicotine dependence, cigarettes, uncomplicated; E87.6 Hypokalemia; I10 Essential (primary) hypertension; R74.01 Elevation of levels of liver transaminase levels
CPT/HCPCS: 36415; 80048; 80053; 80305; 80307; 83735; 85027; 93005; 93010

== ENCOUNTER 2024-11-09 13:56 | Inpatient (IN) | payer OTHER ==
[2024-11-09 14:39] VITALS: BMI 25.0
[2024-11-09] MEDS ORDERED: DICYCLOMINE HCL 10 MG CAPSULE PO PRN (14:42)
[2024-11-09] MEDS ORDERED: ONDANSETRON *ODT* 4 MG TABLET SL PRN (14:42)
[2024-11-09] MEDS ORDERED: IBUPROFEN 600 MG TABLET (FP) PO PRN (14:42)
[2024-11-09] MEDS ORDERED: POLYETHYLENE GLYCOL (HEALTHYLAX) 3350 17 GM PACKET PO PRN (14:42)
[2024-11-09] MEDS ORDERED: NICOTINE POLACRILEX 2 MG GUM BUC PRN (14:42)
[2024-11-09] MEDS ORDERED: BENZOCAINE/MENTHOL (CHLORASEPTIC ) LOZENGE MM PRN (14:42)
[2024-11-09] MEDS ORDERED: BENZONATATE 200 MG CAPSULE PO PRN (14:42)
[2024-11-09] MEDS ORDERED: BISMUTH SUBSALICYLATE 524 MG/30 ML PO PRN (14:42)
[2024-11-09] MEDS ORDERED: NALOXONE (NARCAN) HCL 4 MG/0.1 ML SPRAY NS PRN (14:42)
[2024-11-09] MEDS ORDERED: guaiFENesin 600 MG TABLET.ER (FP) PO PRN (14:42)
[2024-11-09] MEDS ORDERED: MAG HYDROX/AL HYDROX/SIMETH 30 ML UNIT-DOSE CUP PO PRN (14:42)
[2024-11-09] MEDS ORDERED: MAGNESIUM HYDROX 2400MG/30ML ORAL SUSPENSION 30 ML CUP PO PRN (14:42)
[2024-11-09] MEDS ORDERED: IBUPROFEN 400 MG TABLET (FP) PO PRN (14:42)
[2024-11-09] MEDS ORDERED: LOPERAMIDE HCL 2 MG CAPSULE PO PRN (14:42)
[2024-11-09] MEDS: NALTREXONE HCL 50 MG TABLET PO ONE (17:36)
[2024-11-09] MEDS: amLODIPine BESYLATE 5 MG TABLET (FP) PO SCH ×2 (17:39→17:41)
[2024-11-09] MEDS: chlordiazePOXIDE HCL 25 MG CAPSULE PO PRN (17:44)
[2024-11-09] MEDS: chlordiazePOXIDE HCL 25 MG CAPSULE PO SCH (22:16)
[2024-11-09] MEDS: MELATONIN 5 MG TABLETS PO SCH (22:17)
[2024-11-09] MEDS: THIAMINE 100 MG TABLET PO SCH (22:17)
[2024-11-09] MEDS: hydrOXYzine PAMOATE 25 MG CAPSULE (FP) PO PRN (22:17)
[2024-11-09] MEDS: METHOCARBAMOL 500 MG TABLET PO PRN (22:17)
[2024-11-10] MEDS: NALTREXONE HCL 50 MG TABLET PO SCH (10:20)
[2024-11-10] MEDS: PRENATAL VITAMINS W/ FOLIC ACID TABLET (FP) PO SCH (10:20)
[2024-11-10 17:32] LABS: HEMATOCRIT 39.5 % (40.1-51.0); HEMOGLOBIN 12.9 g/dL (13.7-17.5); MCHC 32.7 g/dl (32.3-36.5); MEAN CELL VOLUME 88.6 fl (79.0-92.2); MEAN PLT VOLUME 10.3 fl (9.4-12.4); PLATELET COUNT 270 x10^3/uL (163-337); RDW 12.9 % (12.1-15.9)
[2024-11-10 17:35] LABS: CHLORIDE 92 mmol/L (98-107); POTASSIUM 3.1 mmol/L (3.5-5.1); SODIUM 136 mmol/L (136-145)
[2024-11-10 17:46] LABS: ALBUMIN 3.9 g/dl (3.4-5.0); BLOOD UREA NITROGEN 6.8 mg/dL (7-18)
[2024-11-10 17:47] LABS: ANION GAP 10 mmol/L (4-13); CO2 33 mmol/L (21-32); GLUCOSE,RANDOM 126 mg/dL (74-106)
[2024-11-10 17:50] LABS: CREATININE 0.8 mg/dL (0.55-1.3)
[2024-11-10 17:51] LABS: SGOT/AST 28 U/L (15-37); SGPT/ALT 40 U/L (13-61)
[2024-11-10 17:52] LABS: BILIRUBIN,TOTAL 0.5 mg/dL (0.2-1); TOT PROT 7.1 g/dl (6.4-8.2)
[2024-11-10 17:53] LABS: ALK PHOS 84 U/L (45-117)
[2024-11-11] MEDS: chlordiazePOXIDE HCL 25 MG CAPSULE PO SCH (05:44)
[2024-11-11] MEDS: POTASSIUM CHLORIDE ORAL LIQUID 20 MEQ/15 ML PO ONE ×2 (13:13→17:16)
[2024-11-11] MEDS: ACETAMINOPHEN 325 MG TABLET (FP) PO PRN (17:20)
[2024-11-12] MEDS ORDERED: chlordiazePOXIDE HCL 10 MG CAPSULE PO PRN
[2024-11-12] MEDS: chlordiazePOXIDE HCL 10 MG CAPSULE PO SCH (05:36)
[2024-11-12 08:50] VITALS: RESP 18
[2024-11-12 12:47] VITALS: BP 128/74; PULSE 74; TEMP 97.6
[2024-11-13] MEDS ORDERED: chlordiazePOXIDE HCL 10 MG CAPSULE PO SCH (05:00)
[2024-11-14] MEDS ORDERED: chlordiazePOXIDE HCL 10 MG CAPSULE PO ONE (05:00)
== END 2024-11-12 16:22 | disposition home or self-care (01) | DRG 775 ==
LOC: YASAS 13:56 → Y3N 16:43
PROVIDERS: ADMIT Allergy & Immunology; ATTEND Allergy & Immunology
PROC: HZ2ZZZZ Detoxification Services for Substance Abuse Treatment (ICD-10-PCS; principal; 2024-11-09)
DX: F10.230 Alcohol dependence with withdrawal, uncomplicated (principal); F12.20 Cannabis dependence, uncomplicated; F17.210 Nicotine dependence, cigarettes, uncomplicated; F41.9 Anxiety disorder, unspecified; F43.10 Post-traumatic stress disorder, unspecified; E87.6 Hypokalemia; I10 Essential (primary) hypertension
CPT/HCPCS: 36415; 80053; 80305; 80307; 84132; 85027; 86593; 86780; 93005; 93010